=== PATIENT | male | born 1970 | race Caucasian/White ===

== ENCOUNTER 2017-09-27 05:29 | Emergency (ER) | payer SELFPAY ==
[2017-09-27 05:40] VITALS: PULSE 94; TEMP 98.3
--- NOTE | 2017-09-27 06:11 | C.PDOC ---
History Of Present Illness 47 year old male presents to the ED with complaints of headache and lower back pain for 3 days preceding cough and URI symptoms. Patient had tea at home for symptoms with no relief. Patient did not take any other pain medications. Patient denies photophobia, dizziness, visual changes, weakness, numbness, incontinence, or other complaints at this time. Time Seen by Provider: 09/27/17 05:56 Chief Complaint (Nursing): Headache History Per: Patient History/Exam Limitations: no limitations Onset/Duration Of Symptoms: Days (3 days ) Current Symptoms Are (Timing): Still Present Preceeding Symptoms: None Associated Symptoms: denies: Photophobia Recent travel outside of the [place]: No Past Medical History Reviewed: Historical Data, Nursing Documentation, Vital Signs Vital Signs: Last Vital Signs Temp 98.3 F 09/27/17 05:37 Pulse 94 H 09/27/17 05:37 Resp 20 09/27/17 06:59 BP 130/89 09/27/17 06:59 Pulse Ox 100 09/27/17 06:59 Family History: States: Unknown Family Hx - Social History Hx Alcohol Use: Yes Hx Substance Use: No - Immunization History Hx Tetanus Toxoid Vaccination: No Hx Influenza Vaccination: No Hx Pneumococcal Vaccination: No Review Of Systems Constitutional: Negative for: Fever, Chills Cardiovascular: Negative for: Chest Pain, Palpitations Respiratory: Negative for: Cough, Shortness of Breath Gastrointestinal: Negative for: Nausea, Vomiting Genitourinary: Negative for: Dysuria Musculoskeletal: Positive for: Back Pain Neurological: Positive for: Headache. Negative for: Weakness, Numbness, Dizziness Physical Exam - Physical Exam Appears: Non-toxic, No Acute Distress Skin: Warm, Dry, No Rash Head: Atraumatic, Normacephalic, No Tenderness Eye(s): bilateral: Normal Inspection, PERRL, EOMI Ear(s): Bilateral: Normal Nose: Discharge Oral Mucosa: Moist Neck: Supple Chest: Symmetrical, No Deformity Cardiovascular: Rhythm Regular, No Murmur Respiratory: No Rales, No Rhonchi, No Stridor, Other (clear to auscultation bilaterally) Gastrointestinal/Abdominal: Soft, No Tenderness, No Distention, No Guarding, No Rebound Back: Normal Inspection, No CVA Tenderness, No Muscle Spasm, No Paraspinal Tenderness Extremity: Normal ROM, No Tenderness Neurological/Psych: Oriented x3, Normal Speech, Normal Cognition, Normal Cranial Nerves, No Cerebellar Signs, Normal Motor, Normal Sensation Gait: Steady ED Course And Treatment O2 Sat by Pulse Oximetry: 98 (RA) Pulse Ox Interpretation: Normal Progress Note: Patient was given Motrin 600 mg Disposition - Disposition Referrals: Non [facility] Provider, [Primary Care Provider] - Disposition: HOME/ ROUTINE Disposition Time: 06:14 Condition: GOOD Additional Instructions: Increase Fluids( Brittani [facility]) [facility] Return to ER if worse Prescriptions: Cetirizine HCl [Zyrtec] 10 mg PO DAILY #10 capsule Ibuprofen [Motrin] 600 mg PO Q6H #20 tab Instructions: Viral Syndrome (ED) Forms: [facility] (Nepali) - POA Present On Arrival: None - Clinical Impression Clinical Impression: Viral illness - PA / COMMUNICATIONS ANALYST / Resident Statement MD/DO has reviewed & agrees with the documentation as recorded. - Scribe Statement The provider has reviewed the documentation as recorded by the Scribe Carolann Armendariz All medical record entries made by the Scribe were at my direction and personally dictated by me. I have reviewed the chart and agree that the record accurately reflects my personal performance of the history, physical exam, medical decision making, and the department course for this patient. I have also personally directed, reviewed, and agree with the discharge instructions and disposition.
[2017-09-27 07:01] VITALS: BP 130/89; RESP 20
[2017-09-28 02:45] VITALS: O2SAT 98
== END 2017-09-27 06:59 | disposition home or self-care (01) ==
LOC: C.ER 05:29 → SUPCPDRO 05:29 → C.ER 06:59
DX: B34.9 Viral infection, unspecified (principal)